=== PATIENT | female | born 1970 | race Hispanic/Latino ===

== ENCOUNTER 2017-11-04 01:43 | Emergency (ER) | payer MEDICAID ==
[2017-11-04 01:55] VITALS: BMI 25.0
[2017-11-04 01:57] VITALS: BP 147/107; PULSE 89; RESP 18; TEMP 98; O2SAT 98
--- NOTE | 2017-11-04 02:20 | ED PDOC ---
HPI: Psych/Substance Abuse Time Seen by Provider: 11/04/17 01:51 Chief Complaint (Nursing): Dizziness/Lightheaded Chief Complaint (Provider): Depression History Per: Patient History/Exam Limitations: no limitations Onset/Duration Of Symptoms: Persistent (x1 month) Current Symptoms Are (Timing): Still Present Suicide/Self Injury Attempted (Context): None Associated Symptoms: Depression, Suicidal Thoughts. denies: Suicidal Plan Additional Complaint(s): 47 year old female presents to ED with complaints of hallucinations and depression x1 month and has a past history of depression, PTSD, HTN, and hyperthyroidism. (+) suicidal ideation with no plan and auditory/visual hallucinations. (-) cough, SOB, nausea, vomiting, or fever. Patient states that her hallucinations consist of hearing explosions and seeing bombs explode. PCP: AARON Past Medical History Reviewed: Historical Data, Nursing Documentation, Vital Signs Vital Signs: Last Vital Signs Temp 98.0 F 11/04/17 01:55 Pulse 89 11/04/17 01:55 Resp 18 11/04/17 01:55 BP 147/107 H 11/04/17 01:55 Pulse Ox 98 11/04/17 01:55 - Medical History PMH: Depression, HTN, Hypothyroidism, Post Traumatic Stress Disorder - Surgical History Surgical History: Denies: No Surg Hx Other surgeries: ankle cyst removal - Family History Family History: States: Unknown Family Hx - Social History Current smoker - smoking cessation education provided: Yes Ex-Smoker (has not smoked in the last 12 months): No Alcohol: Occasional Drugs: Denies - Home Medications Home Medications: Ambulatory Orders Medication Instructions Recorded Azithromycin [Zithromax] 250 mg PO DAILY #6 tab 08/17/17 Ibuprofen [Motrin] 600 mg PO TID #15 tab 08/17/17 Azithromycin [Zithromax] 250 mg PO DAILY #6 tab 08/19/17 Ibuprofen [Motrin Tab] 600 mg PO Q6 PRN #15 tab 08/19/17 - Allergies Allergies/Adverse Reactions: Allergies Allergy/AdvReac Type Severity Reaction Status Date / Time codeine Allergy RASH Verified 11/04/17 01:55 Review of Systems ROS Statement: Except As Marked, All Systems Reviewed And Found Negative Psych: Positive for: Depression, Psychosis ((+) auditory/visual hallucinations) , Suicidal ideation Physical Exam - Reviewed Nursing Documentation Reviewed: Yes Vital Signs Reviewed: Yes - Physical Exam Appears: Positive for: Non-toxic, No Acute Distress Head Exam: Positive for: ATRAUMATIC, NORMOCEPHALIC Skin: Positive for: Normal Color, Warm, Dry Eye Exam: Positive for: Normal appearance Neck: Positive for: Normal, Painless ROM, Supple Cardiovascular/Chest: Positive for: Regular Rate, Rhythm. Negative for: Murmur Respiratory: Positive for: Normal Breath Sounds. Negative for: Respiratory Distress Gastrointestinal/Abdominal: Positive for: Normal Exam, Soft. Negative for: Tenderness Back: Positive for: Normal Inspection Extremity: Positive for: Normal ROM. Negative for: Deformity Neurologic/Psych: Positive for: Alert, Oriented. Negative for: Motor/Sensory Deficits - ECG O2 Sat by Pulse Oximetry: 98 (RA) Pulse Ox Interpretation: Normal Medical Decision Making Medical Decision Makin Initial impression: depression, suicidal ideation, and hallucinations in setting of PTSD Initial plan: * Crisis eval 0230 * UDrug Screen * UPreg * UA [id number] Patient was evaluated by crisis and deemed stable for discharge as per Dr. Pan. Dx: depression Scribe Attestation: Documented by Le Canela acting as a scribe for Mack Bee MD. Scribe Attestation: All medical record entries made by the Scribe were at my direction and personally dictated by me. I have reviewed the chart and agree that the record accurately reflects my personal performance of the history, physical exam, medical decision making, and the department course for this patient. I have also personally directed, reviewed, and agree with the discharge instructions and disposition. Disposition - Clinical Impression Clinical Impression: Depression - Disposition Disposition: Routine/Home Disposition Time: 04:47 Condition: STABLE Instructions: Depression (ED) Forms: [employer] (Swazi)
[2017-11-04 03:03] LABS: SQUAMOUS EPITHIAL 14 /hpf (0-5); URINE BACTERIA MOD (<OCC); URINE BILIRUBIN NEGATIVE (NEGATIVE); URINE CLARITY CLOUDY (Clear); URINE COLOR YELLOW (YELLOW); URINE GLUCOSE (UA) NEG (Normal); URINE LEUKOCYTE ESTERASE MOD Leu/uL (Negative); URINE NITRATE NEGATIVE (NEGATIVE); URINE PROTEIN NEGATIVE (NEGATIVE)
[2017-11-04 03:04] LABS: URINE BLOOD SMALL (NEGATIVE)
[2017-11-04 03:34] LABS: BARBITURATES, UR NEGATIVE (NEGATIVE); BENZODIAZEPINES, UR NEGATIVE (NEGATIVE); OPIATES, UR NEGATIVE (NEGATIVE); PHENCYCLIDINE, UR NEGATIVE (NEGATIVE)
== END 2017-11-04 06:52 | disposition home or self-care (01) ==
LOC: H.ER 01:43
DX: F32.9 Major depressive disorder, single episode, unspecified (principal); E03.9 Hypothyroidism, unspecified; F43.10 Post-traumatic stress disorder, unspecified; I10 Essential (primary) hypertension

== ENCOUNTER 2018-02-04 09:11 | Inpatient (IN) | payer MEDICAID ==
[2018-02-04 09:12] VITALS: BMI 25.0
--- NOTE | 2018-02-04 10:53 | ED PDOC ---
HPI: Psych/Substance Abuse Time Seen by Provider: 02/04/18 09:47 Chief Complaint (Nursing): Psychiatric Evaluation Chief Complaint (Provider): Psychiatric Evaluation History Per: Patient History/Exam Limitations: no limitations Onset/Duration Of Symptoms: Days (x 30 days) Current Symptoms Are (Timing): Still Present Associated Symptoms: Anxiety, Depression Additional Complaint(s): 47 years old undomiciled female with history of hypertension, hypothyroidism, anxiety and depression presents to the emergency department today for psychological evaluation. Patient states she has been feeling suicidal for a month, reporting thoughts of "cutting herself, but it would be too messy." She also states that she has a poor memory of where she was born. Patient reports she was evaluated with anxiety at [facility] before, she was discharged with some medications but did not use any. Past Medical History Reviewed: Historical Data, Nursing Documentation, Vital Signs Vital Signs: Last Vital Signs Temp 97.8 F 02/04/18 09:16 Pulse 84 02/04/18 09:16 Resp 16 02/04/18 09:16 BP 128/84 02/04/18 09:16 Pulse Ox 100 02/04/18 09:16 - Medical History PMH: Depression, HTN, Hypothyroidism, Post Traumatic Stress Disorder Denies: HIV, Seizures, Sexually Transmitted Disease - Surgical History Surgical History: No Surg Hx - Family History Family History: States: Unknown Family Hx - Social History Current smoker - smoking cessation education provided: No Alcohol: Occasional Drugs: Other (Marijuana) - Allergies Allergies/Adverse Reactions: Allergies Allergy/AdvReac Type Severity Reaction Status Date / Time codeine Allergy RASH Verified 12/19/17 00:42 Review of Systems ROS Statement: Except As Marked, All Systems Reviewed And Found Negative Constitutional: Negative for: Chills Psych: Positive for: Anxiety, Depression, Suicidal ideation Physical Exam - Reviewed Nursing Documentation Reviewed: Yes Vital Signs Reviewed: Yes - Physical Exam Appears: Positive for: Non-toxic, No Acute Distress Head Exam: Positive for: ATRAUMATIC, NORMOCEPHALIC Skin: Positive for: Normal Color, Warm, Dry Eye Exam: Positive for: EOMI, Normal appearance, PERRL Neck: Positive for: Normal, Painless ROM, Supple Cardiovascular/Chest: Positive for: Regular Rate, Rhythm Respiratory: Positive for: Normal Breath Sounds. Negative for: Wheezing, Respiratory Distress Gastrointestinal/Abdominal: Positive for: Normal Exam, Soft. Negative for: Tenderness Back: Positive for: Normal Inspection Extremity: Positive for: Normal ROM (upper/lower) Neurologic/Psych: Positive for: Alert, Oriented (x 3) - Laboratory Results Result Diagrams: 02/04/18 11:51 02/04/18 11:51 - ECG O2 Sat by Pulse Oximetry: 100 (RA) Pulse Ox Interpretation: Normal Medical Decision Making Medical Decision Making: Initial Impression:anxiety, suicidal, hypertension, hypothyroidism. Initial Plan: --Alcohol Serum --BMP --Drug Screen --TSH --Crisis evaluation --Urine --Urine dispstcik --CBC Scribe Attestation: Documented by Vivian Avilez acting as a scribe for Aurora Santos MD Provider Scribe Attestation: All medical record entries made by the Scribe were at my direction and personally dictated by me. I have reviewed the chart and agree that the record accurately reflects my personal performance of the history, physical exam, medical decision making, and the department course for this patient. I have also personally directed, reviewed, and agree with the discharge instructions and disposition. 1.00 patient medically stable for admission Disposition - Clinical Impression Clinical Impression: Depression - Patient ED Disposition Is Patient to be Admitted: Yes Doctor Will See Patient In The: Hospital - Disposition Disposition: Transfer of Care Disposition Time: 13:00 Condition: GUARDED Instructions: Depression Forms: [employer] (Irish) - Pt Status Changed To: Hospital Disposition Of: Inpatient - Admit Certification Admit to Inpatient:: After my assessment, the patient will require hospitalization for at least two midnights. This is because of the severity of symptoms shown, intensity of services needed, and/or the medical risk in this patient being treated as an outpatient. - POA Present On Arrival: None
[2018-02-04 11:45] LABS: SQUAMOUS EPITHIAL 13 /hpf (0-5); URINE AMORPHOUS SEDIMENT RARE /ul (<OCC); URINE BACTERIA RARE (<OCC); URINE BILIRUBIN NEGATIVE (NEGATIVE); URINE BLOOD NEGATIVE (NEGATIVE); URINE CLARITY CLOUDY (Clear); URINE COLOR YELLOW (YELLOW); URINE GLUCOSE (UA) NEG (Normal); URINE LEUKOCYTE ESTERASE MOD Leu/uL (Negative); URINE PROTEIN NEGATIVE (NEGATIVE); URINE UROBILINOGEN 0.2-1.0 mg/dL (0.2-1.0)
[2018-02-04 11:58] LABS: BASO # 0.1 K/uL (0.0-0.2); BASO % 0.9 % (0.0-2.0); EOS # 0.1 K/uL (0.0-0.7); EOS % 1.1 % (0.0-4.0); HEMOGLOBIN 15.6 g/dL (12.0-16.0); LYMPH # 1.8 K/uL (1.0-4.3); LYMPH % 27.8 % (20.0-40.0); MEAN CELL VOLUME 99.7 fl (81.0-99.0); MEAN CORPUSCULAR HEMOGLOBIN 33.6 pg (27.0-31.0); MEAN CORPUSCULAR HGB CONC 33.7 g/dL (33.0-37.0); MEAN PLATELET VOLUME 8.9 fl (7.2-11.7); MONO # 0.4 K/uL (0.0-0.8); MONO % 6.7 % (0.0-10.0); NEUT # 4.2 K/uL (1.8-7.0); NEUT % 63.5 % (50.0-75.0); NRBC % 0.2 % (0.0-0.0); RBC 4.63 Mil/uL (3.80-5.20); RED CELL DISTRIBUTION WIDTH 14.3 % (11.5-14.5); WHITE BLOOD COUNT 6.6 K/uL (4.8-10.8)
[2018-02-04 11:59] LABS: BARBITURATES, UR NEGATIVE (NEGATIVE); BENZODIAZEPINES, UR NEGATIVE (NEGATIVE); OPIATES, UR NEGATIVE (NEGATIVE); PHENCYCLIDINE, UR NEGATIVE (NEGATIVE)
[2018-02-04 12:09] LABS: BLOOD UREA NITROGEN 11 mg/dl (7-17); CALCIUM 9.6 mg/dL (8.4-10.2); GFR AFRICAN-AMERICAN > 60; GFR NON-AFRICAN AMERICAN > 60
[2018-02-04 13:39] VITALS: RESP 18; O2SAT 98
[2018-02-04] MEDS ORDERED: DiphenhydrAMINE 50 mg/ml Inj IM PRN (15:53)
[2018-02-04] MEDS ORDERED: Alum-Mag Hydrox-Simethicone Susp (30 mL) PO PRN (15:53)
[2018-02-04] MEDS ORDERED: Magnesium Hydroxide Susp 30 ml UD PO PRN (15:53)
--- NOTE | 2018-02-04 16:56 | PCM.PSYCH ---
Initial Psychiatric Evaluation - Initial Psychiatric Evaluation Type of Admission: Voluntary Legal Status: Capacity Chief Complaint (in patient's own words): I am tired of living Patient's Reaction to Hospitalization: pt requested help History of Present Illness and Precipitating Events: pt is 47ys old female, previous psychiatric diagnosis of polysubstance use , reportedly in full sustained remission for the past 15years, pt also has histroy of PTSD , refusing at current time to elaborate on the nature of the trauma pt had previous hospitalizations in [place], last was 06/17, since then non compliant with treatment or follow up, pt stated she has been homeless and facing severe financial stressors, also has no relation with her three children, pt became increasingly depressed on day of evaluation started having suicidal thoughts with plan to cut her wrist , presented to ER seeking help pt denied active suicidal plan or intent on the unit, denied homicidal ideations , denied perceptual disturbances, urine toxicology negative Current Medications: Active Medications Generic Name Dose Route Start Last Admin Trade Name Freq PRN Reason Stop Dose Admin Acetaminophen 650 mg 02/04/18 15:53 Tylenol 325mg Tab PO Q4 PRN Pain, moderate (4-7) Al Hydrox/Mg Hydrox/Simethicone 30 ml 02/04/18 15:53 Maalox Plus 30 Ml PO Q4 PRN Dyspepsia Diphenhydramine HCl 50 mg 02/04/18 15:53 Benadryl IM Q6 PRN Extrapyramidal S/S Unable PO Diphenhydramine HCl 50 mg 02/04/18 15:53 Benadryl PO Q6 PRN Extrapyramidal Symptoms Escitalopram Oxalate 5 mg 02/05/18 09:00 Lexapro PO DAILY TOD Haloperidol 5 mg 02/04/18 15:53 Haldol PO Q4 PRN Agitation Haloperidol Lactate 5 mg 02/04/18 15:53 Haldol IM Q4 PRN Agitation, Unable to Take PO Lorazepam 2 mg 02/04/18 15:53 Ativan IM Q4 PRN Anxiety/Agitation,Unable PO Lorazepam 2 mg 02/04/18 15:53 Ativan PO Q4 PRN Anxiety/Agitation Magnesium Hydroxide 30 ml 02/04/18 15:53 Milk Of Magnesia PO HS PRN Constipation Quetiapine Fumarate 100 mg 02/04/18 22:00 Seroquel PO HS TOD Past Psychiatric History - Past Psychiatric History Explanation of prior treatment: multiple inpatient hospitalizations, hx of non compliance History of ETOH/Drug Use: hx of alcohol and cocaine use in full sustained remission Pertinent Medical Hx (Current Medical&Sleep Prob, Allergies): Allergies Allergy/AdvReac Type Severity Reaction Status Date / Time codeine Allergy RASH Verified 12/19/17 00:42 Albuterol HFA [Ventolin HFA 90 mcg/actuation (8 g)] 2 puff IH Q6 PRN 02/04/18 Fluticasone/Salmeterol [Advair 250-50 Diskus] 1 puff IH Q12 02/04/18 Mental Status Examination - Personal Presentation Personal Presentation: Looks older than stated age - Affect Affect: Constricted, Depressed - Motor Activity Motor Activity: Psychomotor Retardation - Reliability in Providing Information Reliability in Providing Information: Poor, due to alteration in thoughts, Poor , due to altered mood - Speech Speech: Relevant - Mood Mood: Depressed, Anxious - Formal Thought Process Formal Thought Process: Circumstantial - Obsessions/Compulsions Obsessions: No Compulsions: No - Cognitive Functions Orientation: Person, Place Sensorium: Alert Attention/Concentration: Easily distracted Judgement: Imparied, as evidence by: Poor judgement, Imparied, as evidence by: Lack of insight into illness - Risk Risk: Suicidal, Diminished functioning - Strength & Assets Inventory Strength & Assets Inventory: Life experience - Limitations Additional comments: homeless, financial difficulties DSM 5 DX - DSM 5 DSM 5 Diagnosis: major depression post traumatic stress disorder c - Recommended/Plan of Treatment Treatment Recommendations and Plan of Treatment: seroquel 100mg qhs lexapro 5mg uptitrate gradually CBT, group and supportive therapy
--- NOTE | 2018-02-04 20:39 | PCM.BM ---
<Antonia Moreno Delmy - Last Filed: 02/04/18 20:36> Treatment Plan Problems - Problems identified on initial assessmt Hopelessness/Helplessness Date Initiated: 02/04/18 Time Initiated: 20:37 Assessment reference: NA Status: Active Medication nonadherence Date Initiated: 02/04/18 Time Initiated: 20:37 Assessment reference: NA Status: Active Treatment assets and liabiliti Patient Assests: cooperative, self-reliant, ADL independent, negotiates basic needs Patient Liabilities: financial problems, poor support system, substance abuse - Milieu Protocol Maintain good personal hygiene: daily Encourage regular showers, every shift Remind patient to perform daily oral care Conduct patient checks and document Observation sheet: Q15 minutes Maintain personal safety: every shift Educate patient to report safety concerns to staff, every shift Monitor environment for contraband/sharps Medication safety: Monitor for expected outcome, potential side effects: every shift, Assess barriers to learning: every shift, Assess readiness for medication education: every shift Milieu Narrative: seroquel 100mg qhs lexapro 5mg uptitrate gradually CBT, group and supportive therapy Discharge/Continuing Care - Treatment Team Participation Patient/Family/SO Statement: seroquel 100mg qhs lexapro 5mg uptitrate gradually CBT, group and supportive therapy <Jeannette Wan - Last Filed: 02/07/18 16:29> Treatment assets and liabiliti Patient Assests: adapts well, cooperative, resourceful, self-reliant, ADL independent, negotiates basic needs, cognitively intact Patient Liabilities: live alone (long hx of homelessness), financial problems, poor support system, substance abuse Family Contact Family involvement: No known Family/SO Family contact: Patient declines to allow family contact at present - Goals for Treatment Patient goals for treatment: Patient to continue stabilization on 3NP through medication management and group/supportive therapy. Patient to be encouraged to attend groups regularly to promote self-awareness, sobriety, and improve insight , compliance, coping skills and self-esteem. Patient to be provided with referral for appropriate level of aftercare to reduce risk of future hospitalizations and ensure safety in the community. Discharge/Continuing Care - Education Needs Education Needs: Patient Medication, Patient Diagnosis/Disease Process, Patient Coping Skills, Patient Community resources, Patient Aftercare Safety Plan - Discharge Discharge Criteria: Tolerates medication w/o severe side effects, Free of Suicidal thoughts, Normal sleep pattern, Ability to care for self, Reduction of target symptoms Discharge to:: Alf, Other ([facility]) - Treatment Team Participation Patient/Family/SO Statement: 02/07/18 16:30 Pt. attended tx team this morning to discuss precursors to hospitalization, progress on 3NP and aftercare. Pt. reports improved sleep but continues to report frequent nightmares. Pt. expressed concerns regarding recent stomach cramps and requested additional information on medications. Psychoeducation provided. Pt. reports improvement in depression and social withdrawal since admission. Affect is brighter. Pt. remains withdrawn but is more visible on 3NP than upon admission. Pt. denies SI/HI and is able to contract for safety on 3NP. No harmful behaviors noted. <Gaetano Gomez - Last Filed: 02/08/18 10:03> - Diagnosis (1) Depression Status: Acute Interventions: psychotherapy , pharmacotherapy 02/08/18 10:03
[2018-02-05 07:59] LABS: BASO # 0.1 K/uL (0.0-0.2); BASO % 1.1 % (0.0-2.0); EOS # 0.1 K/uL (0.0-0.7); EOS % 2.3 % (0.0-4.0); HEMOGLOBIN 15.5 g/dL (12.0-16.0); LYMPH # 2.3 K/uL (1.0-4.3); LYMPH % 40.5 % (20.0-40.0); MEAN CORPUSCULAR HEMOGLOBIN 33.8 pg (27.0-31.0); MEAN CORPUSCULAR HGB CONC 33.8 g/dL (33.0-37.0); MEAN PLATELET VOLUME 8.6 fl (7.2-11.7); MONO # 0.4 K/uL (0.0-0.8); MONO % 7.6 % (0.0-10.0); NEUT # 2.7 K/uL (1.8-7.0); NEUT % 48.5 % (50.0-75.0); NRBC % 0.2 % (0.0-0.0); RBC 4.59 Mil/uL (3.80-5.20); RED CELL DISTRIBUTION WIDTH 14.5 % (11.5-14.5); WHITE BLOOD COUNT 5.7 K/uL (4.8-10.8)
[2018-02-05 08:15] LABS: ALB/GLOB RATIO 1.2 (1.0-2.1); ALBUMIN 3.9 g/dL (3.5-5.0); ALT/SGPT 36 U/L (9-52); AST/SGOT 28 U/L (14-36); BLOOD UREA NITROGEN 13 mg/dl (7-17); CALCIUM 9.2 mg/dL (8.4-10.2); GFR AFRICAN-AMERICAN > 60; GFR NON-AFRICAN AMERICAN > 60; HDL CHOLESTEROL 53 MG/DL (30-70)
[2018-02-05 08:27] LABS: LDL CHOLESTEROL 136 mg/dL (0-129)
[2018-02-05 08:30] LABS: T4 2.35 ug/dl (5.5-11.0)
--- NOTE | 2018-02-05 09:39 | PCM.PYCHPN ---
Psychiatric Progress Note - Psychiatric Progress Note Patient seen today, length of contact: Patient evaluated, chart reviewed Patient Chief Complaint: "I'm depressed." Problems Identified/Issues Discussed: Patient continues to report feeling depressed w/ constricted affect. She denies AH/VH/SI/HI. She reports feeling tired, possibly secondary to the Seroquel. Medication Change: No Medical Record Reviewed: Yes Consults ordered or reviewed: Medicine consult Mental Status Examination - Cognitive Function Orientation: Person, Place, Situation, Time Memory: Intact Attention: WNL Concentration: WNL Association: WN Fund of Knowledge: [facility] Decription of patient's judgement and insights: Fair I/J - Mood Mood: Depressed - Affect Affect: Constricted, Depressed - Speech Speech: Appropriate - Formal Thought Process Formal Thought Process: No Impairment Psychotic Thoughts and Behaviors: NO AH/VH/paranoia/delusions - Suicidal Ideation Suicidal Ideation: No - Homicidal Ideation Homicidal Ideation: No Goal/Treatment Plan - Goal/Treatment Plan Need for Continued Stay: Remain at risks for inpatient hospitalization, Severe depression anxiety, Discharge may exacerbated symptoms Progress Toward Problem(s) and Goals/Treatment Plan: Major Depressive Disorder, PTSD -Individual and group therapy -Psychoeducation -Continue Lexapro 10 mg PO Daily and Seroquel 100 mg PO HS -Medicine consult -Disposition planning Estimated Date of D/C: 02/08/18
--- NOTE | 2018-02-05 18:09 | CP.PCM.CON ---
History of Present Illness - History of Present Illness History of Present Illness: 47 yo female with history of substance abuse and PTSD admitted to psyche unit because of depression and suicidal ideation Review of Systems - Review of Systems All systems: reviewed and no additional remarkable complaints except (aside from those mentioned above, 12 point system review were negative by me) Past Patient History - Past Social History Smoking Status: Heavy Smoker > 10 Cigarettes Daily Alcohol: Occasional Drugs: Other (Marijuana) - CARDIAC Hx Cardiac Disorders: Yes Hx Hypertension: Yes - PULMONARY Hx Respiratory Disorders: No - NEUROLOGICAL Hx Seizures: No - HEENT Hx HEENT Problems: No - RENAL Hx Chronic Kidney Disease: No - ENDOCRINE/METABOLIC Hx Hypothyroidism: Yes - HEMATOLOGICAL/ONCOLOGICAL Hx Human Immunodeficiency Virus (HIV): No - INTEGUMENTARY Hx Dermatological Problems: No - MUSCULOSKELETAL/RHEUMATOLOGICAL Hx Musculoskeletal Disorders: No - GASTROINTESTINAL Hx Gastrointestinal Disorders: No - GENITOURINARY/GYNECOLOGICAL Hx Genitourinary Disorders: No - PSYCHIATRIC Hx Anxiety: Yes Hx Substance Use: Yes - SURGICAL HISTORY Hx Surgeries: Yes Hx Tubal Ligation: Yes Other/Comment: ankle cyst removed - ANESTHESIA Hx Anesthesia: Yes Hx Anesthesia Reactions: No Meds Allergies/Adverse Reactions: Allergies Allergy/AdvReac Type Severity Reaction Status Date / Time codeine Allergy RASH Verified 12/19/17 00:42 - Medications Medications: Current Medications Acetaminophen (Tylenol 325mg Tab) 650 mg PO Q4 PRN PRN Reason: Pain, moderate (4-7) Al Hydrox/Mg Hydrox/Simethicone (Maalox Plus 30 Ml) 30 ml PO Q4 PRN PRN Reason: Dyspepsia Diphenhydramine HCl (Benadryl) 50 mg IM Q6 PRN PRN Reason: Extrapyramidal S/S Unable PO Diphenhydramine HCl (Benadryl) 50 mg PO Q6 PRN PRN Reason: Extrapyramidal Symptoms Escitalopram Oxalate (Lexapro) 10 mg PO DAILY TOD Last Admin: 02/05/18 09:50 Dose: 10 mg Haloperidol (Haldol) 5 mg PO Q4 PRN PRN Reason: Agitation Haloperidol Lactate (Haldol) 5 mg IM Q4 PRN PRN Reason: Agitation, Unable to Take PO Lorazepam (Ativan) 2 mg IM Q4 PRN PRN Reason: Anxiety/Agitation,Unable PO Lorazepam (Ativan) 2 mg PO Q4 PRN PRN Reason: Anxiety/Agitation Magnesium Hydroxide (Milk Of Magnesia) 30 ml PO HS PRN PRN Reason: Constipation Quetiapine Fumarate (Seroquel) 100 mg PO HS [facility] Last Admin: 02/04/18 21:12 Dose: 100 mg Physical Exam - Constitutional Appears: No Acute Distress - Head Exam Head Exam: ATRAUMATIC - Eye Exam Eye Exam: absent: Scleral icterus - ENT Exam ENT Exam: Mucous Membranes Moist - Neck Exam Neck exam: Negative for: Meningismus - Respiratory Exam Respiratory Exam: absent: Rales, Rhonchi, Wheezes, Respiratory Distress - Cardiovascular Exam Cardiovascular Exam: REGULAR RHYTHM, +S1, +S2 - GI/Abdominal Exam GI & Abdominal Exam: Soft. absent: Tenderness - Rectal Exam Rectal Exam: Deferred - Extremities Exam Extremities exam: Negative for: pedal edema - Back Exam Back exam: NORMAL INSPECTION - Neurological Exam Neurological exam: Alert, Oriented x3 - Psychiatric Exam Psychiatric exam: Normal Affect - Skin Skin Exam: Dry, Intact Results - Vital Signs Recent Vital Signs: Last Vital Signs Temp 98.9 F 02/05/18 10:00 Pulse 73 02/05/18 10:00 Resp 18 02/05/18 10:00 BP 117/79 02/05/18 10:00 Pulse Ox 98 02/04/18 13:38 - Labs Result Diagrams: 02/05/18 07:30 02/05/18 07:30 Labs: Laboratory Results - last 24 hr 02/04/18 02/05/18 02/05/18 11:51 07:30 07:30 WBC 5.7 RBC 4.59 Hgb 15.5 Hct 45.9 MCV 100.0 H MCH 33.8 H MCHC 33.8 RDW 14.5 Plt Count 223 MPV 8.6 Neut % (Auto) 48.5 L Lymph % (Auto) 40.5 H [place] % (Auto) 7.6 Eos % (Auto) 2.3 Baso % (Auto) 1.1 Neut # (Auto) 2.7 Lymph # (Auto) 2.3 [place] # (Auto) 0.4 Eos # (Auto) 0.1 Baso # (Auto) 0.1 Sodium 143 Potassium 4.0 Chloride 104 Carbon Dioxide 29 Anion Gap 14 BUN 13 Creatinine 0.8 Est GFR ( Amer) > 60 Est GFR (Non-Af Amer) > 60 Random Glucose 89 Hemoglobin A1c 5.3 Calcium 9.2 Total Bilirubin 0.4 AST 28 ALT 36 Alkaline Phosphatase 55 Total Protein 7.3 Albumin 3.9 Globulin 3.4 Albumin/Globulin Ratio 1.2 Triglycerides 72 Cholesterol 227 H LDL Cholesterol Direct 136 H HDL Cholesterol 53 Thyroxine (T4) 2.35 L TSH 3rd Generation 80.70 H RPR 02/05/18 07:30 WBC RBC Hgb Hct MCV MCH MCHC RDW Plt Count MPV Neut % (Auto) Lymph % (Auto) [place] % (Auto) Eos % (Auto) Baso % (Auto) Neut # (Auto) Lymph # (Auto) [place] # (Auto) Eos # (Auto) Baso # (Auto) Sodium Potassium Chloride Carbon Dioxide Anion Gap BUN Creatinine Est GFR ( Amer) Est GFR (Non-Af Amer) Random Glucose Hemoglobin A1c Calcium Total Bilirubin AST ALT Alkaline Phosphatase Total Protein Albumin Globulin Albumin/Globulin Ratio Triglycerides Cholesterol LDL Cholesterol Direct HDL Cholesterol Thyroxine (T4) TSH 3rd Generation RPR Nonreactive Assessment & Plan (1) Depression Status: Acute Comment: psyche is managing (2) Suicidal ideation Status: Acute
[2018-02-05] MEDS ORDERED: Albuterol HFA 90 mcg/actuation (8 g) IH PRN (18:12)
[2018-02-05] MEDS: Fluticasone-Salmeterol 250-50mcg Diskus IH SCH (21:21)
[2018-02-06] MEDS: Fluticasone-Salmeterol 250-50mcg Diskus IH SCH ×2 (09:00→21:18)
--- NOTE | 2018-02-06 11:42 | PCM.PYCHPN ---
Psychiatric Progress Note - Psychiatric Progress Note Patient seen today, length of contact: Patient evaluated, chart reviewed Patient Chief Complaint: "I'm depressed." Problems Identified/Issues Discussed: Patient continues to report feeling depressed w/ constricted affect and reports poor sleep. She denies AH/VH/SI/HI. She is not agreeable to increasing the Seroquel at this time. Medication Change: No Medical Record Reviewed: Yes Consults ordered or reviewed: Medicine consult Mental Status Examination - Cognitive Function Orientation: Person, Place, Situation, Time Memory: Intact Attention: WNL Concentration: WNL Association: WNL Fund of Knowledge: [facility] Decription of patient's judgement and insights: Fair I/J - Mood Mood: Depressed - Affect Affect: Constricted, Depressed - Speech Speech: Appropriate - Formal Thought Process Formal Thought Process: No Impairment Psychotic Thoughts and Behaviors: NO AH/VH/paranoia/delusions - Suicidal Ideation Suicidal Ideation: No - Homicidal Ideation Homicidal Ideation: No Goal/Treatment Plan - Goal/Treatment Plan Need for Continued Stay: Severe depression anxiety, Discharge may exacerbated symptoms Progress Toward Problem(s) and Goals/Treatment Plan: Major Depressive Disorder, PTSD -Individual and group therapy -Psychoeducation -Continue Lexapro 10 mg PO Daily and Seroquel 100 mg PO HS; patient not agreeable to increasing the Seroquel at this time -Medicine consult -Disposition planning Estimated Date of D/C: 02/09/18
[2018-02-07] MEDS: Fluticasone-Salmeterol 250-50mcg Diskus IH SCH ×2 (08:49→21:05)
--- NOTE | 2018-02-07 16:24 | PCM.PYCHPN ---
Psychiatric Progress Note - Psychiatric Progress Note Patient seen today, length of contact: Patient evaluated, chart reviewed Patient Chief Complaint: I still feel down and I do not know where to go from here Problems Identified/Issues Discussed: pt evaluated with treatment team, more kempt, thought process less disorganized , pt reported continues feeling down, relates that to being homeless and having financial difficulties, reported improved sleep, denied any current suicidal or homicidal ideations, denied perceptual disturbances' discussed with pt increasing dose of lexapro while monitoring side effects Medical Problems: multiple inpatient hospitalizations, hx of non compliance DSM 5 Symptoms Update: PTSD DEPRESSION Medication Change: No Medical Record Reviewed: Yes Mental Status Examination - Cognitive Function Orientation: Person, Place, Situation, Time Memory: Intact Attention: WNL Concentration: WNL Association: WNL Fund of Knowledge: WNL - Mood Mood: Depressed - Affect Affect: Constricted, Depressed - Speech Speech: Appropriate - Formal Thought Process Formal Thought Process: No Impairment Psychotic Thoughts and Behaviors: PT DENIED PSYCHOTIC SYMPTOMS, NON ELICITED - Suicidal Ideation Suicidal Ideation: No - Homicidal Ideation Homicidal Ideation: No Goal/Treatment Plan - Goal/Treatment Plan Need for Continued Stay: Severe depression anxiety, Discharge may exacerbated symptoms Progress Toward Problem(s) and Goals/Treatment Plan: seroquel 100mg qhs INCRASE lexapro 15mg uptitrate gradually CBT, group and supportive therapy Estimated Date of D/C: 02/09/18
[2018-02-08] MEDS: Fluticasone-Salmeterol 250-50mcg Diskus IH SCH ×2 (09:17→21:07)
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
[2018-02-09] MEDS: Fluticasone-Salmeterol 250-50mcg Diskus IH SCH ×2 (09:12→21:07)
--- NOTE | 2018-02-09 15:00 | PCM.PYCHPN ---
Psychiatric Progress Note - Psychiatric Progress Note Patient seen today, length of contact: Patient evaluated, chart reviewed Patient Chief Complaint: I AM SCARED AND TIRED OF TRYING TO MAKE IT Problems Identified/Issues Discussed: pt evaluated , reported feeling down as she is worried about her living situation on discharge, she reported she has been going through hard time since she was 13, pt tearful when talking about her strugles, continues to be depressed and reported early insomnia discussed with patient increasing lexapro to 20mg and increasing trazodone, pt denied any current suicidal or homicidal ideations, denied perceptual disturbances, no reported side effects of medications Medical Problems: multiple inpatient hospitalizations, hx of non compliance Medication Change: Yes (increase lexapro) Medical Record Reviewed: Yes Mental Status Examination - Cognitive Function Orientation: Person, Place, Situation, Time Memory: Intact Attention: WNL Concentration: WNL Association: WNL Fund of Knowledge: WNL - Mood Mood: Depressed - Affect Affect: Constricted, Depressed - Speech Speech: Appropriate, Soft - Formal Thought Process Formal Thought Process: No Impairment Psychotic Thoughts and Behaviors: PT DENIED PSYCHOTIC SYMPTOMS, NON ELICITED - Suicidal Ideation Suicidal Ideation: No - Homicidal Ideation Homicidal Ideation: No Goal/Treatment Plan - Goal/Treatment Plan Need for Continued Stay: Severe depression anxiety, Discharge may exacerbated symptoms Progress Toward Problem(s) and Goals/Treatment Plan: increase TRAZODONE 200MG QHS increase lexapro 20mg daily , group and supportive therapy Estimated Date of D/C: 02/11/18
[2018-02-10] MEDS: Fluticasone-Salmeterol 250-50mcg Diskus IH SCH ×2 (09:02→21:05)
--- NOTE | 2018-02-10 15:18 | PCM.PYCHPN ---
Psychiatric Progress Note - Psychiatric Progress Note Patient seen today, length of contact: Patient evaluated, chart reviewed Patient Chief Complaint: I FEEL BETTER BUT i NEED SEROQUEL FOR SLEEP Problems Identified/Issues Discussed: pt evaluated , reported feeling less depressed , continues to have early insomnia, pt participating in treatment presenting with brighter affect pt denied any current suicidal or homicidal ideations, denied perceptual disturbances, no reported side effects of medications Medical Problems: multiple inpatient hospitalizations, hx of non compliance Medication Change: Yes (seroquel qhs) Medical Record Reviewed: Yes Mental Status Examination - Cognitive Function Orientation: Person, Place, Situation, Time Memory: Intact Attention: WNL Concentration: WNL Association: WNL Fund of Knowledge: WNL - Mood Mood: Depressed - Affect Affect: Constricted, Depressed - Speech Speech: Appropriate, Soft - Formal Thought Process Formal Thought Process: No Impairment Psychotic Thoughts and Behaviors: PT DENIED PSYCHOTIC SYMPTOMS, NON ELICITED - Suicidal Ideation Suicidal Ideation: No - Homicidal Ideation Homicidal Ideation: No Goal/Treatment Plan - Goal/Treatment Plan Need for Continued Stay: Severe depression anxiety, Discharge may exacerbated symptoms Progress Toward Problem(s) and Goals/Treatment Plan: d/c trazodone start seroquel 100mg qhs lexapro 20mg daily , group and supportive therapy Estimated Date of D/C: 02/11/18
[2018-02-11] MEDS: Fluticasone-Salmeterol 250-50mcg Diskus IH SCH (09:32)
--- NOTE | 2018-02-11 12:55 | PCM.PYCHDC ---
Mental Status Examination - Mental Status Examination Orientation: Person, Place, Situation Memory: Intact Mood: Neutral Affect: Broad Speech: Appropriate Attention: WNL Concentration: WNL Association: WNL Fund of Knowledge: WNL Formal Thought Process: No Impairment Description of patient's judgement and insight: fair insight and judgment Psychotic Thoughts and Behaviors: PT DENIED PSYCHOTIC SYMPTOMS, NON ELICITED Suicidal Ideation: No Current Homicidal Ideation?: No Discharge Summary - Discharge Note Reason for Hospitalization: pt requested help pt is 47ys old female, previous psychiatric diagnosis of polysubstance use , reportedly in full sustained remission for the past 15years, pt also has histroy of PTSD , refusing at current time to elaborate on the nature of the trauma pt had previous hospitalizations in [place], last was 06/17, since then non compliant with treatment or follow up, pt stated she has been homeless and facing severe financial stressors, also has no relation with her three children, pt became increasingly depressed on day of evaluation started having suicidal thoughts with plan to cut her wrist , presented to ER seeking help pt denied active suicidal plan or intent on the unit, denied homicidal ideations , denied perceptual disturbances, urine toxicology negative Consultations:: List each consultation separately and include: 1. Reason for request. 2. Findings. 3. Follow-up Summary of Hospital Course include:: 1. Description of specific treatment plan utilized for patients during their course of treatmen. 2. Summarize the time- course for resolution of acute symptoms and/or regressed behaviors. 3. Describe issues identified and worked on during hospitalization. 4. Describe medication utilized. 5. Describe medical problems identified and treated. 6. Reassessment of suicide risk Summary of Hospital Course: pt ON ADMISSION WAS STARTED ON LEXAPRO 5MG FOR DEPRESSION AND ptsd SYMPTOMS. IT WAS GRADUALLY UPTITRATED TO 20MG pt was also started on trazodone for insomnia, with poor effect it was changed to seroquel 100mg qhs, with positive effect on nightmares and flashbacks CBT group and supportive therapy was provided pt gradually presented with less depressed mood and brighter affect, pt was compliant with treatment , no reported side effects of medications on discharge pt denied any current suicidal or homicidal ideations, denied perceptual disturbances, mental status was stable for discharge follow up arranged by psych social worker at outpatient clinic - Diagnosis (1) Depression Current Visit: Yes Status: Acute - Final Diagnosis (DSM 5) Condition upon Discharge: GOOD DSM 5: major depression PTSD Disposition: HOME/ ROUTINE Follow-up Treatment Plan: d/c trazodone start seroquel 100mg qhs lexapro 20mg daily , group and supportive therapy Prescriptions/Medication Reconciliation: Escitalopram [Lexapro] 20 mg PO DAILY 30 Days #30 tab Oxymetazoline HCl [Nasal Decongestant 15 ml] 1 spr NS Q6H PRN 7 Days #1 bottle PRN Reason: Nasal Congestion Pseudoephedrine [Sudafed Tab] 30 mg PO Q6 PRN 7 Days #28 tab PRN Reason: Allergy Symptoms QUEtiapine [Seroquel] 100 mg PO HS 30 Days #30 tab - Antipsychotic Medications Pt discharged on 2 or more routine antipsychotic medications: No
[2018-02-11 15:47] VITALS: BP 102/58; PULSE 67; TEMP 98.1
== END 2018-02-11 16:03 | disposition home or self-care (01) | DRG 426 ==
LOC: H.ER 09:11 → H.ERHOLD 13:31 → H.PSYCH 15:09
PROVIDERS: ADMIT Psychiatry & Neurology Psychiatry; ATTEND Psychiatry & Neurology Psychiatry
PROC: GZHZZZZ Group Psychotherapy (ICD-10-PCS; principal; 2018-02-04)
PROC: GZ58ZZZ Individual Psychotherapy, Cognitive-Behavioral (ICD-10-PCS; 2018-02-04)
PROC: GZ56ZZZ Individual Psychotherapy, Supportive (ICD-10-PCS; 2018-02-04)
DX: F32.9 Major depressive disorder, single episode, unspecified (principal); F43.10 Post-traumatic stress disorder, unspecified; G47.00 Insomnia, unspecified; Z59.0 Homelessness; R45.851 Suicidal ideations; E03.9 Hypothyroidism, unspecified; Z88.6 Allergy status to analgesic agent; I10 Essential (primary) hypertension; Z91.19 Patient's noncompliance with other medical treatment and regimen

== ENCOUNTER 2018-04-18 01:33 | Emergency (ER) | payer SELFPAY ==
[2018-04-18 01:33] VITALS: BMI 25.0
[2018-04-18 01:54] VITALS: BP 139/84; PULSE 66; RESP 16; TEMP 97.7; O2SAT 98
[2018-04-18 02:56] LABS: BASO # 0.1 K/uL (0.0-0.2); BASO % 0.8 % (0.0-2.0); EOS # 0.2 K/uL (0.0-0.7); EOS % 2.2 % (0.0-4.0); HEMOGLOBIN 14.7 g/dL (12.0-16.0); LYMPH # 2.6 K/uL (1.0-4.3); LYMPH % 29.9 % (20.0-40.0); MEAN CORPUSCULAR HEMOGLOBIN 34.6 pg (27.0-31.0); MEAN PLATELET VOLUME 8.7 fl (7.2-11.7); MONO # 0.8 K/uL (0.0-0.8); MONO % 9.7 % (0.0-10.0); NEUT # 4.9 K/uL (1.8-7.0); NEUT % 57.4 % (50.0-75.0); RBC 4.24 Mil/uL (3.80-5.20); RED CELL DISTRIBUTION WIDTH 13.9 % (11.5-14.5); WHITE BLOOD COUNT 8.6 K/uL (4.8-10.8)
[2018-04-18 03:03] LABS: ALB/GLOB RATIO 1.2 (1.0-2.1); ALBUMIN 3.9 g/dL (3.5-5.0); ALT/SGPT 14 U/L (9-52); AST/SGOT 19 U/L (14-36); BLOOD UREA NITROGEN 13 mg/dl (7-17); CALCIUM 9.5 mg/dL (8.4-10.2); GFR AFRICAN-AMERICAN > 60; GFR NON-AFRICAN AMERICAN > 60
[2018-04-18 03:22] LABS: SQUAMOUS EPITHIAL < 1 /hpf (0-5); URINE BACTERIA RARE (<OCC); URINE BILIRUBIN NEGATIVE (NEGATIVE); URINE BLOOD NEGATIVE (NEGATIVE); URINE CLARITY CLEAR (Clear); URINE COLOR YELLOW (YELLOW); URINE GLUCOSE (UA) NEG (Normal); URINE LEUKOCYTE ESTERASE NEG Leu/uL (Negative); URINE PROTEIN NEGATIVE (NEGATIVE); URINE UROBILINOGEN 0.2-1.0 mg/dL (0.2-1.0)
--- NOTE | 2018-04-18 04:00 | ED PDOC ---
HPI: Abdomen Time Seen by Provider: 04/18/18 02:06 Chief Complaint (Nursing): Abdominal Pain Chief Complaint (Provider): Lower abdominal pain History Per: Patient History/Exam Limitations: no limitations Onset/Duration Of Symptoms: Days Outside of [place] travel?: No Current Symptoms Are (Timing): Still Present Additional Complaint(s): 47 yo female with HTN presents with lower abdominal pain and lower back pain bilateral for 3 days. Pt describes it as discomfort and fullness. Pt states that she is passing sreekanth and having BM but not as much as normal. Pt denies N/V/ D. Pt reports normal urination. Past Medical History Reviewed: Historical Data, Nursing Documentation, Vital Signs Vital Signs: Last Vital Signs Temp 97.7 F 04/18/18 01:51 Pulse 66 04/18/18 01:51 Resp 16 04/18/18 01:51 BP 139/84 04/18/18 01:51 Pulse Ox 98 04/18/18 04:01 - Medical History PMH: Anxiety, Depression, HTN, Hypothyroidism, Post Traumatic Stress Disorder Denies: HIV, Chronic Kidney Disease, Seizures, Sexually Transmitted Disease - Surgical History Surgical History: No Surg Hx - Family History Family History: States: Unknown Family Hx - Living Arrangements Living Arrangements: With Family - Social History Current smoker - smoking cessation education provided: Yes - Home Medications Home Medications: Ambulatory Orders Medication Instructions Recorded Albuterol HFA [Ventolin HFA 90 2 puff IH Q6 PRN 02/04/18 mcg/actuation (8 g)] Fluticasone/Salmeterol [Advair 1 puff IH Q12 02/04/18 250-50 Diskus] Escitalopram [Lexapro] 20 mg PO DAILY 30 Days #30 tab 02/11/18 Oxymetazoline HCl [Nasal 1 spr NS Q6H PRN 7 Days #1 bottle 02/11/18 Decongestant 15 ml] Pseudoephedrine [Sudafed Tab] 30 mg PO Q6 PRN 7 Days #28 tab 02/11/18 QUEtiapine [Seroquel] 100 mg PO HS 30 Days #30 tab 02/11/18 Docusate [Colace] 100 mg PO Q12H PRN #10 cap 04/18/18 - Allergies Allergies/Adverse Reactions: Allergies Allergy/AdvReac Type Severity Reaction Status Date / Time codeine Allergy RASH Verified 12/19/17 00:42 Review of Systems ROS Statement: Except As Marked, All Systems Reviewed And Found Negative Constitutional: Negative for: Fever, Chills Gastrointestinal: Positive for: Abdominal Pain. Negative for: Nausea, Vomiting , Diarrhea Genitourinary Female: Negative for: Dysuria Physical Exam - Reviewed Nursing Documentation Reviewed: Yes Vital Signs Reviewed: Yes - Physical Exam Appears: Positive for: Well, Non-toxic, No Acute Distress Head Exam: Positive for: ATRAUMATIC, NORMAL INSPECTION, NORMOCEPHALIC Skin: Positive for: Normal Color, Warm, DRY Eye Exam: Positive for: Normal appearance ENT: Positive for: Normal ENT Inspection Neck: Positive for: Normal, Painless ROM Cardiovascular/Chest: Positive for: Regular Rate, Rhythm Respiratory: Positive for: Normal Breath Sounds. Negative for: Accessory Muscle Use, Respiratory Distress Gastrointestinal/Abdominal: Positive for: Normal Exam, Soft. Negative for: Tenderness, Guarding, Rebound Back: Positive for: Normal Inspection Extremity: Positive for: Normal ROM Neurologic/Psych: Positive for: Alert, Oriented - Laboratory Results Result Diagrams: 04/18/18 02:51 04/18/18 02:51 - ECG O2 Sat by Pulse Oximetry: 98 Medical Decision Making Medical Decision Makin yo female with abdominal pain, no N/V/D, afebrile with normal abdominal exam. Labs normal, urine normal and XR showing constipation without air/fluid lines. Disposition - Clinical Impression Clinical Impression: Constipation - Patient ED Disposition Is Patient to be Admitted: No Counseled Patient/Family Regarding: Diagnosis, Need For Followup, Rx Given - Disposition Referrals: Viktor Larsen MD [Staff Provider] - Disposition: Routine/Home Disposition Time: 04:00 Condition: STABLE Prescriptions: Docusate [Colace] 100 mg PO Q12H PRN #10 cap PRN Reason: Constipation Instructions: Constipation in Adults Forms: [employer] (Indian)
--- NOTE | 2018-04-18 08:42 | RAD ---
HISTORY: diffuse abdominal discomfort COMPARISON: No prior. FINDINGS: BOWEL: There is a nonobstructive bowel gas pattern appreciated. Prominent retained fecal material seen throughout the large bowel suspicious for constipation. Clinically correlate further. No free intraperitoneal gas or suspicious intra-abdominal calcifications. BONES: Normal. OTHER FINDINGS: None. IMPRESSION: Prominent retained fecal material throughout the large bowel may reflect constipation. Clinically correlate. A nonobstructive bowel gas pattern is identified. No free air apparent.
== END 2018-04-18 05:45 | disposition home or self-care (01) ==
LOC: H.ER 01:33
DX: K59.00 Constipation, unspecified (principal); E03.9 Hypothyroidism, unspecified; I10 Essential (primary) hypertension; F32.9 Major depressive disorder, single episode, unspecified; F43.10 Post-traumatic stress disorder, unspecified